=== PATIENT | male | born 1935 | race Caucasian/White ===

== ENCOUNTER 2018-10-23 13:56 | Observation (INO) | payer MEDICARE ==
[2018-10-23] MEDS ORDERED: Aspirin Chewable 81 MG TAB ONE (15:05)
[2018-10-23] MEDS ORDERED: Ondansetron ODT 4 MG TAB PO PRN (17:49)
[2018-10-23] MEDS ORDERED: Acetaminophen 325 MG TAB PO PRN (17:49)
[2018-10-23] MEDS ORDERED: Ondansetron PF 4 MG/2 ML Vial IVP PRN (17:49)
[2018-10-23] MEDS ORDERED: cloNIDine 0.1 MG TAB PO PRN (17:53)
--- NOTE | 2018-10-24 02:20 | HP ---
HISTORY OF PRESENT ILLNESS: The patient is an 82-year-old male who has a previous history of CVA. Apparently, he was visiting in [place] Thanksgiving night, apparently began having weakness, numbness, and elevated blood pressure. He was seen at [facility] in [place], was treated, released from there, was told he had elevated blood pressure. After CT scan of the brain was done which was normal, he was instructed to follow up with his primary care doctor. He tried to see me by tomorrow; however, he developed further dizziness and weakness to his left hand, tingling to his left hand, was seen at [facility], was found to be hypertensive, had a CT scan there as well as lab work done there which was all apparently normal. He was transferred here for further evaluation and treatment. Since being here, he has been slightly hypertensive, but all of his neurological symptoms have improved. He no longer notes any tingling or any lightheadedness. He does have some dizziness from time to time. He was noted to have some nystagmus upon evaluation by the medical crew. Otherwise, no other medical complaints noted. No chest pain was noted. He did have one incident of vomiting today associated with some dizziness. He has not noted any fever, no head trauma. As noted, he has a previous history of CVA which had left him with a slight speech dysarthria, otherwise no other medical complaints are noted otherwise. ALLERGIES: HE IS ALLERGIC TO FLAGYL AND MACROBID. CURRENT MEDICATIONS: 1. Amlodipine/benazepril 5/20 one tablet daily. 2. Plavix 75 mg daily. 3. Lomotil as needed for diarrhea. 4. Vitamin B12. 5. Vitamin D. SURGICAL HISTORY: Positive for: 1. Hernia repair. 2. Knee surgery. 3. Cataract surgery. 4. Eye surgery. 5. Colon surgery. 6. Bilateral inguinal hernia repair. MEDICAL HISTORY: Positive for: 1. Hypertension. 2. High cholesterol. 3. Previous history of stroke. FAMILY HISTORY: Noncontributory. SOCIAL AND PERSONAL HISTORY: He is . He does not smoke nor does he drink alcohol. PHYSICAL EXAMINATION: VITAL SIGNS: His blood pressure is 167/100, pulse 88 and regular, temperature 98.6, and O2 sat 98% on room air. GENERAL: He is alert and active, sitting up in bed. As a matter of fact when I saw him in his ER room, he was sitting up, eating normally without difficulties and without problems noted with swallowing. HEENT: Normocephalic and atraumatic. Extraocular muscles intact. Sclerae and conjunctivae clear. NECK: Supple. Full range of motion. No masses. LUNGS: Clear. HEART: Reveals regular rate and rhythm without murmur, gallops, or rubs. ABDOMEN: Soft, nontender. Bowel sounds present and active. No hepatosplenomegaly is noted. EXTREMITIES: No clubbing, edema, or cyanosis noted. NEUROLOGIC: He is alert and oriented x3. He is able to move all extremities. To command, he is able to hold both lower and upper extremities up against gravity. He does have some slight left-sided weakness which is old. DIAGNOSTICS: CT scan of the brain done at [facility] is otherwise normal. IMPRESSION: This is an 82-year-old male who is having a hypertensive issue with possible transient ischemic attack. PLAN: Patient will be observed overnight. We will order MRI of the brain. Control blood pressure with supplemental clonidine. We will continue current antiplatelet activity as well as Plavix at this time. Job ID: [id number]
[2018-10-24] MEDS ORDERED: Clopidogrel Bisulfate 75 MG TAB PO SCH (09:00)
[2018-10-24] MEDS ORDERED: Amlodipine 5 mg/Benazepril 20 mg CAP PO SCH (09:00)
--- NOTE | 2018-10-24 10:31 | ULT ---
BILATERAL CAROTID DUPLEX ULTRASOUND INCLUDING COLOR AND SPECTRAL DOPPLER IMAGING: History: 82-year-old male with history of TIA. FINDINGS: Minimal visceral plaque and intimal thickening bilaterally. PSV right ICA 44 cm/sec. EDV 14 cm/sec. ICA/CCA ratio 0.7. PSV left IVC 58 cm/sec. EDV 18 cm/sec. ICA/CCA ratio 1.0. IMPRESSION: No hemodynamically significant stenosis. 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 POS: [facility]
--- NOTE | 2018-10-24 14:05 | MRI ---
MRI BRAIN WITHOUT CONTRAST: HISTORY: TIA, dizziness, hypertension. FINDINGS: Correlation is made with the previous day's CT scan. No restricted diffusion is seen. Multiple foci of T2 prolongation are noted in the periventricular w denia matter consistent with chronic small-vessel ischemic disease. No evidence of acute infarct, hem orrhage, midline shift, or abnormal extraaxial fluid collections are seen. There is gliosis in the l eft posterior frontal cortex. The visualized paranasal sinuses and mastoid air cells are well aerate d. IMPRESSION: No evidence of acute intracranial process. POS: [facility]
--- NOTE | 2018-10-26 07:47 | DIS ---
DATE OF ADMISSION: 10/23/2018 DATE OF DISCHARGE: 10/24/2018 SUBJECTIVE: The patient was seen in the ER yesterday. Unfortunately, he was not able to be admitted to the floor due to bed crowding. He underwent evaluation with MRI of the brain as well as carotid doppler ultrasound both of which were normal. He continued to have runs of hypertensive episodes while in the hospital. It was felt like he could be stable enough to discharge home. All of his symptoms of tingling had resolved. His hearing improved. He was discharged home on amlodipine 5/20 one tablet daily, Plavix 75 mg daily, benazepril 20 mg daily as well as clonidine 0.1 mg b.i.d. He will be seen in followup in my office in one week. Job ID: [id number]
== END 2018-10-24 15:35 | disposition home or self-care (01) ==
LOC: ERS 13:56 → ERHOLD 15:05
PROVIDERS: ADMIT Family Medicine; ATTEND Family Medicine
DX: R42 Dizziness and giddiness (principal); R53.1 Weakness; R20.2 Paresthesia of skin; R11.2 Nausea with vomiting, unspecified; H55.00 Unspecified nystagmus; I69.322 Dysarthria following cerebral infarction; I10 Essential (primary) hypertension; E78.00 Pure hypercholesterolemia, unspecified; Z79.02 Long term (current) use of antithrombotics/antiplatelets; Z79.899 Other long term (current) drug therapy; Z88.1 Allergy status to other antibiotic agents
CPT/HCPCS: 70551; 93880; 99285; G0378; J2405; Q0162

== ENCOUNTER 2020-04-30 12:48 | Outpatient (CLI) | payer MEDICARE ==
[~2020-04-30 12:48] MED LIST: Magnevist 469MG/ML 20 ML VIAL ONE
--- NOTE | 2020-04-30 14:15 | RAD ---
THREE VIEWS OF THE RIGHT RIBS: 04/30/20 INDICATION: History of right sided chest pain. FINDINGS: No displaced right sided rib fracture is evident. The visualized right lung is clear. No pneumothorax is evident seen on the right side. IMPRESSION: No displaced right sided rib fracture. POS: [facility]
--- NOTE | 2020-04-30 14:17 | RAD ---
TWO VIEWS STERNUM: INDICATION: Midsternal chest pain. FINDINGS/IMPRESSION: No displaced sternal fracture is evident. POS: [facility]
--- NOTE | 2020-04-30 15:56 | MRI ---
MRI OF BRAIN WITH AND WITHOUT IV CONTRAST: 04/30/20 HISTORY: CVA, vertigo, forgetfulness. FINDINGS: Correlation is made with the CT scan of 03/23/18. Comparison is made with the noncontrasted MRI of 10/24/18. No restricted diffusion is seen. Multiple foci of T2 prolongation with periventricular white matter c onsistent with chronic small vessel ischemic disease are again seen. The ventricular size is stable a nd the basilar cisterns patent. No evidence of infarct, hemorrhage, mass, midline shift or abnormal extra-axial fluid collections are seen. No abnormal postcontrast enhancement is identified. Gliosis in the left posterior frontal tara ex is redemonstrated. The visualized paranasal sinuses and mastoid air cells are well aerated. IMPRESSION: No evidence of acute intracranial process or mass. POS: [facility]
== END 2020-04-30 12:49 | disposition home or self-care (01) ==
LOC: BICMRI 12:48
PROVIDERS: ATTEND Family Medicine
DX: R42 Dizziness and giddiness (principal); R47.81 Slurred speech; R68.89 Other general symptoms and signs; I63.89 Other cerebral infarction
CPT/HCPCS: 70553; 71120; 82565

== ENCOUNTER 2020-06-25 05:50 | Outpatient (CLI) | payer MEDICARE, OTHER ==
[2020-06-25 16:43] LABS: Prothrombin Time 13.1 sec (12.0-14.7)
[2020-06-25 17:25] LABS: Anion Gap 17 mmol/L (10-20); BUN (Urea Nitrogen) 23 mg/dL (8.4-25.7); Calc. Creatinine Clearance 0 mL/min (70-130); Carbon Dioxide 24 mmol/L (23-31); Chloride 104 mmol/L (98-107); Estimated GFR-MDRD 39; Glucose 97 mg/dL (83-110); Potassium 4.6 mmol/L (3.5-5.1); Sodium 140 mmol/L (136-145)
[2020-06-25 17:48] LABS: Band 4 % (5-11); Eosinophils 4 % (0-10); Hemoglobin 15.5 g/dL (14.0-18.0); Lymphocytes 12 % (21-51); MDiff Complete? YES; Mean Corpuscular HGB CONC 33.6 g/dL (32.0-36.0); Mean Corpuscular Hemoglobin 32.5 pg (27.0-31.0); Mean Corpuscular Volume 96.7 fL (78.0-98.0); Mean Platelet Volume 7.2 fL (7.4-10.4); Monocytes 7 % (0-10); Neutrophil 26 % (42-75); Platelet Count 225 thou/uL (130-400); Platelet Morphology Comment Appears Adequate; Polychromasia SLIGHT = 2-3 cells (100X) (0-2/hpf); Reactive Lymphocytes 47 % (0-10); Red Blood Cell (RBC) Count 4.76 mill/uL (4.70-6.10); Reflex for Review?? YES; White Blood Cell (WBC) Count 12.8 thou/uL (4.8-10.8)
[2020-06-26 12:08] LABS: SARS-CoV-2 MS2 Positive; SARS-CoV-2 N Gene Negative; SARS-CoV-2 S Gene Negative; SARS-CoV-2 by NAA Not Detected (NotDetected); SARS-CoV-2 orf1ab Negative
== END 2020-06-25 05:51 | disposition home or self-care (01) ==
LOC: LABBT 05:50
PROVIDERS: ATTEND Orthopaedic Surgery
DX: Z01.818 Encounter for other preprocedural examination (principal); Z11.59 Encounter for screening for other viral diseases; M17.12 Unilateral primary osteoarthritis, left knee
CPT/HCPCS: 80048; 85025; 85610; 87081; 93005; U0003; 85060; 87635; 93010

== ENCOUNTER 2020-06-25 13:15 | Inpatient (IN) | payer MEDICARE ==
[2020-06-23 10:32] VITALS: BMI 25.4
[2020-06-30] MEDS ORDERED: Vancomycin 1 GM/200 ML BAG ONE (07:03)
[2020-06-30] MEDS ORDERED: Tranexamic Acid 1,000 MG/10 ML VIAL ONE (07:03)
[2020-06-30] MEDS ORDERED: Sodium Chloride 0.9% 100 ML ONE (07:03)
[2020-06-30] MEDS ORDERED: Midazolam HCl 2 mg/2 ml Vial ONE (07:43)
[2020-06-30] MEDS ORDERED: Fentanyl 100 MCG/2 ML VIAL ONE ×3 (07:43→11:36)
[2020-06-30] MEDS ORDERED: Zolpidem Tartrate 5 MG TAB PO PRN ×2 (08:00→08:50)
[2020-06-30] MEDS ORDERED: Ropivacaine HCl/PF 250 ML in Premix Bag 1 BAG NERVE BLCK SCH (08:00)
[2020-06-30] MEDS ORDERED: Promethazine HCl 25 MG/ML VIAL IM PRN ×3 (08:00→11:23)
[2020-06-30] MEDS ORDERED: traMADol HCl 50 MG TAB PO PRN ×2 (08:00)
[2020-06-30] MEDS ORDERED: Ondansetron PF 4 MG/2 ML Vial IVP PRN ×2 (08:00→08:50)
[2020-06-30] MEDS ORDERED: HYDROcodone/Acetaminophen 10/325 mg Tablet PO PRN (08:00)
[2020-06-30] MEDS ORDERED: Fentanyl 100 MCG/2 ML VIAL IV PRN (08:01)
[2020-06-30] MEDS ORDERED: diphenhydrAMINE 25 MG CAP PO PRN (08:50)
[2020-06-30] MEDS ORDERED: Acetaminophen 325 MG TAB PO PRN (08:50)
[2020-06-30] MEDS: Senokot S 8.6-50 MG TAB PO SCH ×2 (09:00→20:27)
[2020-06-30] MEDS ORDERED: Non-Formulary Item 1 EACH (Cholecalciferol (Vitamin D3) [Vitamin D] 1,000 UNIT) PO SCH (09:00)
[2020-06-30] MEDS ORDERED: Non-Formulary Item 1 EACH (Hydrochlorothiazide [Hydrochlorothiazide] 12.5 MG) PO SCH (09:00)
[2020-06-30] MEDS: Ferrous Gluconate 324 MG TAB PO SCH ×2 (09:00→20:27)
[2020-06-30] MEDS ORDERED: Amlodipine 5 mg/Benazepril 20 mg CAP PO SCH (09:00)
[2020-06-30] MEDS: Aspirin 81 mg Enteric Coated Tablet PO SCH ×2 (09:00→20:27)
[2020-06-30] MEDS: Multivitamin W/ Minerals 1 TAB PO SCH (09:00)
[2020-06-30] MEDS ORDERED: POTASSIUM GLUCONATE 99 MG PO SCH (09:00)
[2020-06-30] MEDS ORDERED: Non-Formulary Item 1 EACH (Cyanocobalamin (Vitamin B-12) [Vitamin B-12] 1,000 MCG) PO SCH (09:00)
[2020-06-30] MEDS ORDERED: Dexamethasone 20 MG/5 ML VIAL ONE (11:18)
[2020-06-30] MEDS ORDERED: Ropivacaine 0.2% HCl/PF (40 MG/20 ML VIAL) ONE (11:18)
[2020-06-30] MEDS ORDERED: PROPOFOL 200 MG/20 ML VIAL ONE (11:18)
[2020-06-30] MEDS ORDERED: Bupivacaine HCl 0.5%/Epinephrine 1:200,000/PF 30 ml Vial ONE (11:18)
[2020-06-30] MEDS ORDERED: Ondansetron PF 4 MG/2 ML Vial ONE (11:18)
[2020-06-30] MEDS ORDERED: Ondansetron HCl/PF 4 MG/2 ML Vial IVP PRN (11:23)
[2020-06-30] MEDS ORDERED: Promethazine HCl 25 MG/ML VIAL SLOW IVP PRN (11:23)
--- NOTE | 2020-06-30 11:37 | RAD ---
EXAM: 2 views of the left knee HISTORY: Knee arthroplasty COMPARISON: None FINDINGS: No knee effusion is seen. The patient is status post knee arthroplasty without perihardware lucency or fracture. Air in the soft tissues is from recent surgery. IMPRESSION: Status post knee arthroplasty without evidence of complication.
[2020-06-30] MEDS: Sodium Chloride 0.9% 1,000 ML IV SCH ×2 (14:44→21:06)
[2020-06-30] MEDS: CEFAZOLIN 2 GM in Premix Bag 1 BAG IVPB SCH (18:02)
[2020-06-30] MEDS: HYDROcodone/Acetaminophen 10/325 mg Tablet PO PRN ×2 (18:10→22:10)
[2020-07-01] MEDS: CEFAZOLIN 2 GM in Premix Bag 1 BAG IVPB SCH (00:33)
[2020-07-01 05:15] LABS: Hemoglobin 13.7 g/dL (14.0-18.0); Mean Corpuscular HGB CONC 33.2 g/dL (32.0-36.0); Mean Corpuscular Hemoglobin 31.9 pg (27.0-31.0); Mean Corpuscular Volume 95.9 fL (78.0-98.0); Mean Platelet Volume 6.6 fL (7.4-10.4); Platelet Count 203 thou/uL (130-400); RBC Distribution Width 11.9 % (11.5-14.5); Red Blood Cell (RBC) Count 4.31 mill/uL (4.70-6.10); White Blood Cell (WBC) Count 18.2 thou/uL (4.8-10.8)
[2020-07-01] MEDS: HYDROcodone/Acetaminophen 10/325 mg Tablet PO PRN ×4 (05:46→21:15)
[2020-07-01] MEDS: Sodium Chloride 0.9% 1,000 ML IV SCH ×2 (06:03→14:03)
--- NOTE | 2020-07-01 07:31 | OP ---
DATE OF PROCEDURE: 06/30/2020 Dictated by Carlos Dean PA-C, as a scribe for Dr. Sander Lopez. PREOPERATIVE DIAGNOSIS: End-stage tricompartmental osteoarthritis, left knee. POSTOPERATIVE DIAGNOSIS: End-stage tricompartmental osteoarthritis, left knee. PROCEDURE PERFORMED: Cemented cruciate-sparing computer-assisted navigated left total knee arthroplasty. SURGEON: Sander Lopez MD STONE LAYER: Carlos Dean PA-C ANESTHESIA: General via LMA, augmented with indwelling adductor canal block and a single-shot sciatic block. COMPONENTS USED: [employer] (formerly [employer] Triathlon size 6 cemented cruciate-sparing femoral component with a size 5 cemented primary tibial baseplate, 11-mm polyethylene fixed bearing insert, and an A32 patellar button. ESTIMATED BLOOD LOSS: 100 mL. TOURNIQUET TIME: 54 minutes at 300 mmHg. FINDINGS: End-stage severe degenerative tricompartmental disease, [id number] arthrosis, periarticular osteophyte formation, large serous effusion, and hypertrophic synovium. INPUT: 800 mL crystalloid. OUTPUT: No Boyd was placed. DRAINS: None. SPECIMENS: None. COMPLICATIONS: None. COUNTS: Correct. INDICATIONS FOR PROCEDURE: Johny is an 84-year-old male who has had progressive left knee pain and problems with standing and walking for the last 5 to 7 years. He has failed conservative management and elected to proceed with total knee arthroplasty as definitive treatment of his pain. PROCEDURE IN DETAIL: After informed consent was obtained in the preoperative holding area, the patient was taken to the operative suite where general anesthesia was induced. Once adequate level of anesthesia was obtained, the patient was then positioned appropriately and a well-padded tourniquet was placed over the operative thigh. The operative extremity was then prepped and draped in the usual sterile fashion. Prior to exsanguination, a multidisciplinary time-out was called and all members of the surgical team attended. The extremity was then exsanguinated and tourniquet was raised where it remained for the remainder of the case to include closure. A midline longitudinal incision was then made directly over the patella, extending 2 to 3 fingerbreadths above the superior pole of the patella and 2 to 3 fingerbreadths below the inferior patellar pole down to the tibial tubercle. Deeper subcutaneous layers were dissected sharply and local bleeding was controlled with Bovie electrocautery. The insurance legal assistant then performed a longitudinal quad tendon split sharply with a median parapatellar arthrotomy, carried out down to the tibial tubercle. Medial sheath was then opened along the medial joint line inferiorly with Bovie and blunt dissection. Subtotal infrapatellar fat pad-ectomy was performed as was an anterior horn of the lateral meniscus. The knee was then placed in flexion and the computer-assisted distal femoral fiducial was pinned in place. After mapping the distal femur, the distal femoral cutting guide was then placed and pinned by the insurance legal assistant. The oscillating saw was then used by the insurance legal assistant to remove the appropriate amount of distal bone. After this was performed, the distal femoral sizing guide was placed, pinned, and the 4-in-1 cutting block was then placed for appropriate rotation. Again, the oscillating saw was used to remove the appropriate amount of bone cuts anteriorly, posteriorly, and chamfer cuts. After completion of the distal femoral cuts, the posterior cruciate ligament was then identified, retracted, and recessed by the insurance legal assistant using Bovie electrocautery. Once posteriorly subluxing the distal femur over the tibia, the proximal tibial fiducial for navigation was then pinned into place by the insurance legal assistant. The proximal tibia was mapped and the cutting guide was pinned into place and adjusted for the appropriate resection. The insurance legal assistant then pinned this into place and the oscillating saw was used to make a proximal tibia resection after carefully placing Hohmann retractors to protect the collateral ligaments. The osteotome was used to remove the proximal tibial resection. This was cleaned up with Bovie electrocautery. Attention was then turned to placing trials. The tibial tray was placed 1st. The drop gerardo was used to set rotation. This was pinned by the insurance legal assistant into place. We chose the appropriate size polyethylene for good fit and finish and mid flexion stability. The distal femoral component was then placed, the knee was placed into extension and tested with varus valgus stressing as well as anterior-posterior drawer. They all seemed quite snug and tight with full range of motion observed. Patellar resection was then addressed. The insurance legal assistant used 2 towel clips to taina the patella and hold in place while the primary surgeon used the oscillating saw to resect the underside of the patella. We sized it appropriately and the drill holes were placed for lugs and the patellar button was placed for trial. This was taken through range of motion with flexion and extension. There was no squinting or release noted and the patella tracked true in the intercondylar notch and anterior flange. The femoral component and patella trial as well as a trial polyethylene were removed. The tibia was subluxed, allowing for the keel punch instrumentation. We then punched the appropriate keel depth and size for the implant. All trials were then removed and all prepared bone surfaces were then copiously irrigated with pulsatile lavage and prepared for cementation. The knee was again placed in flexion. After blotting dry, the tibial baseplate was then cemented and malleted into place. All excess cement was removed by the insurance legal assistant with a curettage and Hudson elevator. We then placed polyethylene and it was malleted squarely into place and the femoral component was then placed and all excess cement was removed. The knee was then placed in extension. Patella button was addressed and cemented into place. Excess cement was removed by the insurance legal assistant. We then placed the knee back into flexion and checked for excess cement after an extension maneuver and this was all removed as well. The entire knee and arthrotomy were copiously irrigated with pulsatile lavage. Primary closure was accomplished with #2 Vicryl and reapproximating the median parapatellar arthrotomy and longitudinal split. This was oversewn with #2 Quill in concert with primary surgeon and co-surgeon at the same time. The subcutaneous layer was reapproximated with a running 0 Quill stitch and subcuticular layer was closed with a running Monocryl 2-0 Quill stitch. Skin cement was used to reapproximate the skin. This was allowed to cure. A sterile dressing was applied. Tourniquet was dropped and a sterile dressing was applied and the procedure terminated without any complication. The patient was awakened in the operative suite, airway was removed, and they were taken to recovery room in stable condition. Job ID: [id number]
--- NOTE | 2020-07-01 08:42 | PRG ---
DATE OF SERVICE: 07/01/2020 SUBJECTIVE: Johny is an 84-year-old male who is postop day #1 from left total knee arthroplasty. He is doing very well. He is quite comfortable and he is conversive and happy at this point. OBJECTIVE: VITAL SIGNS: Temperature 98.1, pulse 71, respiratory rate 16, and blood pressure 145/70. GENERAL: He is alert and oriented to person, place, time, situation, response with appropriate examiner, in good spirits and conversive. EXTREMITIES: Visual inspection of the left lower extremity demonstrates to have no strike through. There is no erythema. He is neurovascularly intact in the left lower extremity. LABORATORY DATA: Hemoglobin and hematocrit of 13.7 and 41.3. He does have a white count of 18.2. IMPRESSION: An 84-year-old male, postop day #1, left total knee arthroplasty, doing well. PLAN: Continue current care. Probable discharge to home tomorrow. Job ID: [id number]
[2020-07-01] MEDS: Aspirin 81 mg Enteric Coated Tablet PO SCH ×2 (09:08→21:15)
[2020-07-01] MEDS: Ferrous Gluconate 324 MG TAB PO SCH ×2 (09:08→21:15)
[2020-07-01] MEDS: Senokot S 8.6-50 MG TAB PO SCH ×2 (09:08→21:15)
[2020-07-01] MEDS: Hydrochlorothiazide 25 MG TAB PO SCH (09:08)
[2020-07-01] MEDS: Cyanocobalamin (Vitamin B-12) 1,000 MCG TAB PO SCH (09:08)
[2020-07-01] MEDS: Cholecalciferol 1,000 UNITS (25 MCG) TAB PO SCH (09:08)
[2020-07-01] MEDS: Multivitamin W/ Minerals 1 TAB PO SCH (09:09)
[2020-07-01] MEDS: Potassium Chloride 8 MEQ TAB PO SCH (09:33)
[2020-07-01] MEDS: Amlodipine 5 mg/Benazepril 20 mg CAP PO SCH (09:33)
[2020-07-02] MEDS: Sodium Chloride 0.9% 1,000 ML IV SCH ×2 (00:06→11:57)
[2020-07-02] MEDS ORDERED: Bisacodyl 10 MG SUPP PR PRN (07:29)
[2020-07-02] MEDS ORDERED: chlorproMAZINE HCl 25 MG TAB PO PRN (07:30)
[2020-07-02] MEDS: HYDROcodone/Acetaminophen 10/325 mg Tablet PO PRN ×2 (09:17→14:57)
[2020-07-02] MEDS: Potassium Chloride 8 MEQ TAB PO SCH (09:18)
[2020-07-02] MEDS: Hydrochlorothiazide 25 MG TAB PO SCH (09:18)
[2020-07-02] MEDS: Cholecalciferol 1,000 UNITS (25 MCG) TAB PO SCH (09:18)
[2020-07-02] MEDS: Amlodipine 5 mg/Benazepril 20 mg CAP PO SCH (09:18)
[2020-07-02] MEDS: Aspirin 81 mg Enteric Coated Tablet PO SCH (09:18)
[2020-07-02] MEDS: Senokot S 8.6-50 MG TAB PO SCH (09:18)
[2020-07-02] MEDS: Ferrous Gluconate 324 MG TAB PO SCH (09:18)
[2020-07-02] MEDS: Cyanocobalamin (Vitamin B-12) 1,000 MCG TAB PO SCH (09:19)
[2020-07-02] MEDS: Multivitamin W/ Minerals 1 TAB PO SCH (09:19)
[2020-07-02 11:23] VITALS: BP 167/84; TEMP 98.6
== END 2020-07-02 15:15 | disposition home health service (06) | DRG 470 ==
LOC: SJJU 06-30 06:33 → SURG A 06-30 13:15
PROVIDERS: ADMIT Orthopaedic Surgery; ATTEND Orthopaedic Surgery
PROC: 8E0YXBZ Computer Assisted Procedure of Lower Extremity (ICD-10-PCS; principal; 2020-06-30)
PROC: 0SRD0J9 Replacement of Left Knee Joint with Synthetic Substitute, Cemented, Open Approach (ICD-10-PCS; 2020-06-30)
DX: M17.12 Unilateral primary osteoarthritis, left knee (principal); M25.462 Effusion, left knee; M25.762 Osteophyte, left knee
CPT/HCPCS: 36415; 85027; C1713; C1776; J0670; J0690; J1100; J2250; J2405; J2704; J2795; J3010; J3370; J3490

== ENCOUNTER 2023-09-01 10:32 | Outpatient (CLI) | payer MEDICARE | END 2023-09-01 10:33 | disposition home or self-care (01) | LOC: SCSRAD 10:32 | PROVIDERS: ATTEND Family Medicine | DX: Z01.818 Encounter for other preprocedural examination (principal) | CPT/HCPCS: 36415; 71046; 80053; 81001; 85025; 85610; 85730 ==